=== PATIENT | male | born 1980 | race Caucasian/White ===

== ENCOUNTER 2021-09-05 18:34 | Emergency (ER) | payer SELFPAY ==
[~2021-09-05] VITALS: Ht 187.9 cm; Wt 65.0 kg
[~2021-09-05 18:34] MED LIST: HYDR-3454 PO; OXYC1TAB25 PO; PRED20TA PO
[2021-09-05] MEDS ORDERED: LIDOCAINE 1% INJ 20 ML 20 ML VIAL INJ STA (18:47)
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
[2021-09-05 19:26] VITALS: BP 117/67
== END 2021-09-05 19:27 | disposition home or self-care (01) ==
LOC: EDUNIT# 18:34 → ER FS 18:35
DX: S01.511A Laceration without foreign body of lip, initial encounter (principal); W22.8XXA Striking against or struck by other objects, initial encounter
CPT/HCPCS: 12011

== ENCOUNTER 2021-10-11 18:11 | Emergency (ER) | payer SELFPAY ==
[~2021-10-11] VITALS: Ht 188 cm; Wt 67.7 kg
--- NOTE | 2021-10-11 19:18 | Diagnostic Imaging Report ---
INDICATION: Fall with head, neck and facial pain. TECHNIQUE: Multiple contiguous axial images were obtained through the head, neck, and facial bones without the use of intravenous contrast. Sagittal and coronal reformations through the cervical spine and facial bones were also performed. Auto Exposure Controls were utilized during the CT exam to meet ALARA standards for radiation dose reduction. COMPARISON: There is no prior study for comparison. CT BRAIN FINDINGS: There were no extra-axial fluid collections. No intracranial hemorrhage. No intracranial mass or mass effect. No midline shift. The ventricles are normal in size and position. There were no focal parenchymal abnormalities in the brain. Calvarial windows show no calvarial fracture. CT CERVICAL SPINE FINDINGS: There was no evidence of cervical spine fracture. There was no subluxation or malalignment. There is no significant degenerative change. CT MAXILLOFACIAL FINDINGS: There is a fracture of the nasal septum with leftward deviation of the anterior portion. There are fractures of the anterior nasal spine. The mandible appears intact. Dental caries are noted. Temporomandibular joints appear in good alignment. Orbital contents are unremarkable. There is mucosal thickening in the maxillary sinuses on both sides, left greater than right. IMPRESSION: CT brain was unremarkable. CT cervical spine was unremarkable. CT maxillofacial demonstrates a fracture of the nasal septum with leftward deviation of the anterior fragment, as well as fractures of the anterior nasal spine. No other fractures are visualized. Multiple dental caries are noted. Dictated by: Dictated on workstation # [id number]
[2021-10-11] MEDS ORDERED: ORPHENADRINE 60 MG/2 ML (NORFLEX) AMP (ED ONLY) IM STA (20:53)
[2021-10-11] MEDS ORDERED: morphine INJ 10 MG/ML 1ML (SYR OR VIAL) IM STA (20:53)
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
[2021-10-11] MEDS ORDERED: METH-732 PO (22:11)
[2021-10-11] MEDS ORDERED: IBUP-1780 PO (22:11)
[2021-10-11] MEDS ORDERED: ACHD5005 PO (22:11)
[2021-10-11] MEDS ORDERED: NFCHLORHGL MM (22:11)
[2021-10-11 22:21] VITALS: BP 119/81
== END 2021-10-11 22:22 | disposition home or self-care (01) ==
LOC: EDUNIT# 18:11 → ER FS 18:13
DX: S02.2XXA Fracture of nasal bones, initial encounter for closed fracture (principal); S01.21XA Laceration without foreign body of nose, initial encounter; S01.512A Laceration without foreign body of oral cavity, initial encounter; S16.1XXA Strain of muscle, fascia and tendon at neck level, initial encounter; S03.2XXA Dislocation of tooth, initial encounter; F17.290 Nicotine dependence, other tobacco product, uncomplicated; W18.30XA Fall on same level, unspecified, initial encounter; Y92.009 Unspecified place in unspecified non-institutional (private) residence as the place of occurrence of the external cause
CPT/HCPCS: 70450; 70486; 72125

== ENCOUNTER 2023-04-23 00:50 | Emergency (ER) | payer SELFPAY ==
[~2023-04-23 00:50] MED LIST changes: +ACHD5005 PO; +IBUP-1780 PO; +METH-732 PO; +NFCHLORHGL MM
--- NOTE | 2023-04-23 01:02 | ED Upper Extremity ---
General Stated Complaint: FALL|RIGHT SHOULDER PAIN History of Present Illness Date Seen by Provider: Apr 23, 2023 Time Seen by Provider: 00:58 Initial Comments 42-year-old male presents with right shoulder pain. Patient reports that he fell off of his deck. Allergies and Home Medications Allergies Coded Allergies: No Known Drug Allergies (Unverified , 05/05/15) Patient Home Medication List Home Medication List Reviewed: Yes Chlorhexidine Gluconate (Chlorhexidine Gluconate) 473 Ml Mouthwash, 15 ML MM BID Prescribed by: DARNELL HOUGH on 10/11/212210 Hydrocodone/Acetaminophen (Hydrocodone-Acetamin 5-325 mg) 1 Each Tablet, 1 TAB PO Q4H PRN for PAIN-SEVERE (8-10) Prescribed by: DARNELL HOUGH on 10/11/212211 Ibuprofen (Ibuprofen) 800 Mg Tablet, 800 MG PO Q8H PRN for PAIN Prescribed by: DARNELL HOUGH on 10/11/212210 Methocarbamol (Methocarbamol) 750 Mg Tablet, 1,500 MG PO Q8H PRN for muscle spasm/neck pain Prescribed by: DARNELL HOUGH on 10/11/212210 Review of Systems Constitutional: no symptoms reported Respiratory: no symptoms reported Cardiovascular: no symptoms reported Gastrointestinal: no symptoms reported Genitourinary: no symptoms reported Musculoskeletal: see HPI Past Chbvdlm-Ygwwqn-Tukhbm Hx Immunizations Up To Date Tetanus Booster (TDap): Less than 5yrs Past Medical History Surgery/Hospitalization HX: dentures Surgeries: Yes Reproductive Disorders: No Sexually Transmitted Disease: No HIV/AIDS: No Family Medical History Cancer Physical Exam Vital Signs Vital Signs - First Documented 04/23/23 00:56 Pulse 96 Resp 18 B/P (MAP) 115/75 (88) Pulse Ox 93 O2 Delivery Room Air Capillary Refill : Height, Weight, BMI Height: 6'2.00" Weight: 145lbs. oz. 65.570547tb; 19.00 BMI Method:Stated General Appearance: WD/WN, mild distress Neck: non-tender, full range of motion Cardiovascular: normal peripheral pulses, regular rate, rhythm Respiratory: lungs clear, normal breath sounds Shoulder: bone tenderness, limited ROM, soft tissue tenderness Elbow/Forearm: normal inspection Wrist: Yes normal inspection Hand: normal inspection Neurologic/Tendon: normal sensation Neurologic/Psychiatric: alert, normal mood/affect, oriented x 3 Skin: normal color, warm/dry, tattoos/piercings Procedures/Interventions Suture Size: 5-0 Progress/Results/Core Measures Results/Orders My Orders Orders - CORONADOAUDREY DO Shoulder 3 View Right (04/23/23 00:58) Ed Ortho/Other Supplies Order (04/23/23 01:07) Ketorolac Injection (Toradol Injection) (04/23/23 01:07) Vital Signs/I&O 04/23/23 00:56 Pulse 96 Resp 18 B/P (MAP) 115/75 (88) Pulse Ox 93 O2 Delivery Room Air Progress Progress Note : Progress Note Patient's x-ray was reviewed by me. Patient's exam and x-ray is consistent with an AC joint separation. Patient be placed in a splint. Given a Toradol shot. Recommend Tylenol ibuprofen as needed for pain. Recommend he follow-up with Rodolfo Lerma next week for recheck and further recommendations. He should wear his sling until cleared by Rodolfo. Patient stable and discharged home. Patient is at increased risk for morbidity and mortality based on social determinants of health. Departure Impression Primary Impression: Acromioclavicular joint separation Qualified Codes: S43.101A - Unspecified dislocation of right acromioclavicular joint, initial encounter Disposition: HOME, SELF-CARE Condition: Stable Departure-Patient Inst. Referrals: AMOR LERMA ,LOCAL PHYSICIAN (PCP) Primary Care Physician Patient Instructions: How to Use a Shoulder Sling, Floating Shoulder (DC) Add. Discharge Instructions: Please call Rodolfo Lerma Monday or Monday for a follow-up appointment. Please wear sling until cleared by orthopedic physical therapist. Tylenol ibuprofen every 4-6 hours as needed for discomfort. 4% topical lidocaine with menthol cream gel or patch use as directed on package for pain. Voltaren/diclofenac cream or gel use as directed on package as needed for pain. Ice for 10 to 15 minutes at a time 3-4 times daily AUDREY CORONADO DO Apr 23, 2023 01:01
[2023-04-23] MEDS ORDERED: KETOROLAC 30 MG/ML VIAL IM STA (01:07)
[2023-04-23 01:14] VITALS: BP 115/75
--- NOTE | 2023-04-23 08:24 | Diagnostic Imaging Report ---
INDICATION: Right shoulder pain. Fall. FINDINGS: There are no findings of glenohumeral joint dislocation. There is a slight offset of the right AC joint and may reflect a mild AC joint separation. This is of indeterminate age. There are no findings of a proximal humeral fracture. No clavicular or scapular fractures evident. There is no identified rib fracture. The right lung is clear without pneumothorax. IMPRESSION: 1. Mild right AC joint separation of indeterminate age. No glenohumeral joint dislocation or findings of an acute fracture. Dictated by: Dictated on workstation # [id number]
== END 2023-04-23 01:17 | disposition home or self-care (01) ==
LOC: EDUNIT# 00:50 → ER FS 00:52
DX: S43.101A Unspecified dislocation of right acromioclavicular joint, initial encounter (principal); Z28.310 Unvaccinated for COVID-19; W13.0XXA Fall from, out of or through balcony, initial encounter
CPT/HCPCS: 73030